=== PATIENT | female | born 1980 ===

== ENCOUNTER 2020-10-08 17:17 | Emergency (ER) | payer OTHER, BC ==
[~2020-10-08] VITALS: Ht 172.7 cm; Wt 93.0 kg
[2020-10-08 17:25] VITALS: BP 145/97
[2020-10-08] MEDS ORDERED: cefTRIAXone SOD 1,000 MG VL IM ONE (23:00)
[2020-10-08] MEDS ORDERED: AZITHROMYCIN 250 MG TAB PO ONE (23:00)
== END 2020-10-09 00:22 | disposition home or self-care (01) ==
LOC: EEVIPCON 17:17 → ER 17:17
DX: T74.21XA Adult sexual abuse, confirmed, initial encounter (principal); Y04.8XXA Assault by other bodily force, initial encounter; Y93.89 Activity, other specified; Y92.89 Other specified places as the place of occurrence of the external cause; Y99.8 Other external cause status
CPT/HCPCS: 96372; 99283; J0696